=== PATIENT | male | born 1990 | race American Indian/Alaskan Native ===

== ENCOUNTER 2019-07-15 18:50 | Emergency (ER) | payer OTHER ==
--- NOTE | 2019-07-15 21:47 | Event Note ---
ED Screening Note ED Screening Note: believes he has hemorrhoids states he got up this morning and had a BM states he was straining to have a BM bright red blood when he wipes rectal pain PMHx none no allergies to meds This initial assessment/diagnostic orders/clinical plan/treatment(s) is/are subject to change based on patients health status, clinical progression and re- assessment by fellow clinical providers in the ED. Further treatment and workup at subsequent clinical providers discretion. Patient/guardian urged not to elope from the ED as their condition may be serious if not clinically assessed and managed. Initial orders include: ACC eval
--- NOTE | 2019-07-16 00:09 | Emergency Department Report ---
ED GI Bleed [facility] - General Chief complaint: GI Bleed Stated complaint: BLEEDING HEMORROIDS Time Seen by Provider: 07/15/19 21:46 Source: patient Mode of arrival: Ambulatory Limitations: No Limitations - History of Present Illness Initial comments: believes he has hemorrhoids times 1 month but has gotten worst today states he got up this morning and had a BM states he was straining to have a BM bright red blood when he wipes rectal pain PMHx none no allergies to meds MD complaint: blood on toilet paper Onset/Timin -: month(s) - Related Data Previous Rx's Medication Instructions Recorded Last Taken Type Hydrocortisone [Anucort-HC SUPPOS] 25 mg RC BID #12 supp.rect 07/16/19 Unknown Rx ED Review of Systems ROS: Stated complaint: BLEEDING HEMORROIDS Other details as noted in HPI ED Past Medical Hx - Past Medical History Previous Medical History?: No - Surgical History Past Surgical History?: No - Social History Smoking Status: Current Every Day Smoker Substance Use Type: Alcohol - Medications Home Medications: Home Medications Medication Instructions Recorded Confirmed Last Taken Type Hydrocortisone [Anucort-HC SUPPOS] 25 mg RC BID #12 supp.rect 07/16/19 Unknown Rx ED Physical Exam - General Limitations: No Limitations General appearance: alert, in no apparent distress - Head Head exam: Present: atraumatic, normocephalic - Rectal Rectal exam: Present: hemorrhoids, tenderness - Extremities Exam Extremities exam: Present: normal inspection - Back Exam Back exam: Present: normal inspection - Neurological Exam Neurological exam: Present: alert, oriented X3, normal gait - Psychiatric Psychiatric exam: Present: normal affect, normal mood - Skin Skin exam: Present: warm, dry, intact, normal color. Absent: rash ED Course Vital Signs 07/15/19 07/15/19 19:01 19:44 Temperature 98.4 F Pulse Rate 71 76 Respiratory 16 18 Rate Blood Pressure 121/74 128/94 O2 Sat by Pulse 96 100 Oximetry - Procedure Description Procedures done: Was able to digitally reduce hemorrhoids. ED Medical Decision Making - Medical Decision Making believes he has hemorrhoids times 1 month but has gotten worst today states he got up this morning and had a BM states he was straining to have a BM bright red blood when he wipes rectal pain PMHx none no allergies to meds Was able to digitally reduce hemorrhoids. Patient will be discharged on Anusol and referred to colorectal specialist. To be given ibuprofen for pain management here. Critical care attestation.: If time is entered above; I have spent that time in minutes in the direct care of this critically ill patient, excluding procedure time. ED Disposition Clinical Impression: Bleeding external hemorrhoids Disposition: DC-01 TO HOME OR SELFCARE Is pt being admited?: No Does the pt Need Aspirin: No Condition: Stable Instructions: Hemorrhoids (ED) Prescriptions: Hydrocortisone [Anucort-HC SUPPOS] 25 mg RC BID #12 supp.rect Referrals: PRIMARY CARE, [Primary Care Provider] - 3-5 Days [facility] [Provider Group] - 3-5 Days Forms: Accompanied Note, Work/School Release Form(ED)
[2019-07-16] MEDS ORDERED: IBUPROFEN 600 MG TAB PO ONE (00:12)
[2019-07-16 01:55] VITALS: BP 123/66
== END 2019-07-16 01:10 | disposition home or self-care (01) ==
LOC: ED 18:50
DX: K64.4 Residual hemorrhoidal skin tags (principal); F17.200 Nicotine dependence, unspecified, uncomplicated
CPT/HCPCS: 99283